=== PATIENT | male | born 1985 | race African-American/Black ===

== ENCOUNTER 2020-11-17 21:34 | Emergency (ER) | payer OTHER, SELFPAY ==
--- NOTE | ~2020-11-17 | CT_ITS ---
EXAMINATION: CT cervical spine wo con DATE: 11/17/2020 23:51 INDICATION: Head injury TECHNIQUE: Computed tomography (CT) of the cervical spine was performed without intravenous contrast. The dose-length product (DLP) was 297.40 mGy-cm. Automated exposure control and iterative reconstruc tion technique were employed. COMPARISON: None FINDINGS: There is no fracture, dislocation, or subluxation. The vertebral body heights, alignment, a nd intervertebral disc spaces are normal. The paravertebral soft tissues are unremarkable. The odonto id is intact. IMPRESSION: 1. No acute osseous abnormality. Reviewed, dictated and finalized at location A.
--- NOTE | ~2020-11-17 | CT_ITS ---
EXAMINATION: CT brain wo con INDICATION: Head injury COMPARISON: None TECHNIQUE: Standard unenhanced head CT. The dose-length product (DLP) was 605.33 mGy-cm. The mA was a djusted according to patient size. Iterative reconstruction technique was employed. FINDINGS: There is no intracranial hemorrhage, acute infarction, or abnormal mass lesion. 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 The ventricles are normal. There is no abnormal mass effect or midline shift. The ross-white matter differentiation is normal. The basal cisterns are patent. Th e orbits are normal. The paranasal sinuses, mastoids and calvarium are normal. IMPRESSION: 1. No acute intracranial abnormality. Reviewed, dictated and finalized at location A.
--- NOTE | 2020-11-17 21:40 | ECG_ITS ---
Measurements Intervals [place] Rate: 104 P: 57 MN: 145 QRS: 28 QRSD: 110 T: 76 QT: 320 QTc: 423 Interpretive Statements SINUS TACHYCARDIA EARLY PRECORDIAL R/S TRANSITION NONSPECIFIC T-WAVE ABNORMALITY BORDERLINE ECG Electronically Signed On 11-18-2020 6:47:11 CDT by Ronald Leon D.O.
[2020-11-17 21:41] VITALS: BP 148/101; PULSE 105; RESP 22; TEMP 36.7; O2SAT 98
[2020-11-17 21:45] VITALS: PULSE 104
[2020-11-17 22:01] LABS: Glucose Point of Care 185 mg/dl (65-105)
[2020-11-17 22:28] VITALS: BP 141/95; PULSE 108; RESP 20; O2SAT 100
--- NOTE | 2020-11-17 22:29 | PC.NURSE ---
Laceration tray at bedside at this time.
--- NOTE | 2020-11-17 22:46 | ED.SYNCOPE ---
HPI - Syncope General Chief Complaint: Syncope Stated Complaint: syncopal with rt eye lac Time Seen by Provider: 11/17/20 22:45 Source: patient, EMS and RN notes reviewed Mode of arrival: EMS History of Present Illness HPI narrative: Patient is 35 years old -[place] male presented to the ED because of syncope and fall. Patient was visiting his brother, sitting on a chair, drinking alcohol and laughing hard then found himself on the floor patient fell of the chair which is about approximately 1 foot above the ground. Patient got up in 15 to 20 seconds. Currently complaining of right frontal pain and laceration. Unknown tetanus shot, fully vaccinated for COVID-19, history of TIA lasted for 2 hours at the beginning of this year, history of diabetes, hypertension, hyperlipidemia. Related Data Allergies Allergy/AdvReac Type Severity Reaction Status Date / Time aspirin Allergy Hives Verified 11/17/20 21:48 Penicillins Allergy Hives Verified 11/17/20 21:48 Course Vital Signs Vital signs: Vital Signs Temperature 36.7 C 11/17/20 21:41 Pulse Rate 105 H 11/17/20 21:41 Respiratory Rate 22 H 11/17/20 21:41 Blood Pressure 148/101 H 11/17/20 21:41 Pulse Oximetry 98 11/17/20 21:41 Temperature 36.7 C 11/17/20 21:41 Pulse Rate 109 H 11/18/20 00:52 Respiratory Rate 13 11/18/20 00:52 Blood Pressure 133/98 H 11/18/20 00:52 Pulse Oximetry 97 11/18/20 00:52 Procedures Laceration Laceration 1: Date: 11/18/20 Time: 02:32 Site: face Side (If applicable): right Size (cm): 2.5 Description: stellate and irregular Depth: simple, single layer Local Anesthetic: lidocaine 1% and with epi Amount of anesthesia used (mL): 1 Pre-repair: wound explored and irrigated ====== Skin Level ====== Skin layer closed with: nylon Size (cm): 6-0 Number of sutures: 7 Technique: simple, interrupted ====== Subcutaneous Layer ====== ====== Muscle Layer ====== ====== Tendon Layer ====== MDM - Syncope MDM Narrative Medical decision making narrative: Patient had vasovagal secondary to hard laughing, work-up showed no significant finding to explain patient's syncope except the hard laughing. Patient was seen by clerk telegraph service today for the second time and the schedule to see him tomorrow for blood work-up. Patient is telling me that he have history of CKD, creatinine averages running in the 2.6. Lab Data Result diagrams: 11/17/20 23:19 11/17/20 23:19 Labs: Lab Results 11/17/20 11/17/20 11/17/20 Range/Units 21:58 23:19 23:19 WBC 7.6 (4.5-10.0) K/mm3 RBC 3.30 L (4.6-6.20) M/mm3 Hgb 10.5 L (14.0-18.0) g/dL Hct 31.5 L (42.0-52.0) % MCV 95.5 (80-100) fl MCH 31.8 (26-34) pg MCHC 33.3 (32-36) g/dl RDW 13.4 (11.5-14.5) % Plt Count 366 (150-375) k/mm3 MPV 8.9 (7.4-10.4) fl Immature Gran % (Auto) 3.6 H (0-0.5) % Neut % (Auto) 63.2 (45.5-73.1) % Lymph % (Auto) 19.1 (18.3-44.2) % [place] % (Auto) 11.1 H (2.6-8.5) % Eos % (Auto) 2.2 (0-4.4) % Baso % (Auto) 0.8 (0.2-1.2) % Lymph # (Auto) 1.45 (0.9-3.2) K/mm3 [place] # (Auto) 0.8 H (0.1-0.6) K/mm3 Eos # (Auto) 0.2 (0-0.3) K/mm3 Baso # (Auto) 0.1 (0.0-0.1) K/mm3 Abs Immat Gran (auto) 0.27 H (0.00-0.031) K/mm3 Absolute Neuts (auto) 4.8 (1.3-6.7) K/mm3 Absolute Nucleated RBC 0.0 (0.0-0.012) K/mm3 Nucleated RBC % 0.0 (0.0-0.2) % Sodium 143 (137-145) mmol/L Potassium 3.9 (3.4-5.0) mmol/L Chloride 108 H (98-107) mmol/L Carbon Dioxide 21 L (22-30) mmol/L Anion Gap 14 (8-16) mmol/L BUN 28 H (9-20) mg/dL Creatinine 2.80 H (0.7-1.3) mg/dL Estim Creat Clear Calc 33 ml/min Estimated GFR 31 L (59 - ) Glucose 207 H (65-110) mg/dL POC Capillary Glucose 185 H (65-105) mg/dl Calcium 10.2 (8.4
[2020-11-17] MEDS: TETANUS,DIPHTHERIA,AC PERTUSSIS ADULT (0.5 ML) BOOSTRIX IM (23:06)
[2020-11-17 23:08] VITALS: BP 152/90; PULSE 104; RESP 18; O2SAT 100
[2020-11-17 23:29] LABS: Basophils Absolute Auto 0.1 K/mm3 (0.0-0.1); Basophils Percent Auto 0.8 % (0.2-1.2); Eosinophils Absolute Auto 0.2 K/mm3 (0-0.3); Eosinophils Percent Auto 2.2 % (0-4.4); Hematocrit 31.5 % (42.0-52.0); Hemoglobin 10.5 g/dL (14.0-18.0); Immature Granulocyte Absolute 0.27 K/mm3 (0.00-0.031); Immature Granulocyte Percent A 3.6 % (0-0.5); Lymphocytes Absolute Auto 1.45 K/mm3 (0.9-3.2); Lymphocytes Percent Auto 19.1 % (18.3-44.2); Mean Corpuscular HGB Conc 33.3 g/dl (32-36); Mean Corpuscular Hemoglobin 31.8 pg (26-34); Mean Corpuscular Volume 95.5 fl (80-100); Mean Platelet Volume 8.9 fl (7.4-10.4); Monocytes Absolute Auto 0.8 K/mm3 (0.1-0.6); Monocytes Percent Auto 11.1 % (2.6-8.5); Neutrophils Absolute Auto 4.8 K/mm3 (1.3-6.7); Neutrophils Percent Auto 63.2 % (45.5-73.1); Platelet Count Result 366 k/mm3 (150-375); Red Cell Distribution Width 13.4 % (11.5-14.5); White Blood Count 7.6 K/mm3 (4.5-10.0)
[2020-11-17 23:38] LABS: Potassium 3.9 mmol/L (3.4-5.0)
[2020-11-17 23:39] LABS: Ethanol 40 mg/dL (<10)
[2020-11-17 23:40] LABS: Alanine Aminotransferase 30 U/L (4-50); Albumin Level 4.7 g/dL (3.5-5.1); Alkaline Phosphatase 39 U/L (38-126); Anion Gap 14 mmol/L (8-16); Aspartate Amino Transferase 37 U/L (17-59); Bilirubin,Total 0.2 mg/dL (0.2-1.3); Blood Urea Nitrogen 28 mg/dL (9-20); Calcium 10.2 mg/dL (8.4-10.2); Carbon Dioxide 21 mmol/L (22-30); Chloride 108 mmol/L (98-107); Estimated CRCL calculation 33 ml/min; Estimated Glomerular Filt Rate 31; Glucose 207 mg/dL (65-110); Sodium 143 mmol/L (137-145)
[2020-11-18] LABS: Amphetamine Screen Urine Negative (Negative); Barbiturate Screen Urine Negative (Negative); Benzodiazepines Screen Urine Negative (Negative); Cannabinoid Screen Urine Positive (Negative); Cocaine Screen Urine Negative (Negative); Methadone Screen Urine Negative (Negative); Opiate Screen Urine Negative (Negative); Phencyclidine Screen Urine Negative (Negative)
[2020-11-18 00:52] VITALS: BP 133/98; PULSE 109; RESP 13; O2SAT 97
[2020-11-18] MEDS: CLINDAMYCIN HCL 150 MG CAP 600 MG PO (02:35)
[2020-11-18 02:36] VITALS: BP 133/88; PULSE 87; RESP 20; O2SAT 99
== END 2020-11-18 02:37 | disposition home or self-care (01) ==
PROVIDERS: Emergency Provider Emergency Medicine; PCP Family Medicine
DX: R55 Syncope and collapse (principal); S01.111A Laceration without foreign body of right eyelid and periocular area, initial encounter; N18.9 Chronic kidney disease, unspecified; E11.22 Type 2 diabetes mellitus with diabetic chronic kidney disease; I12.9 Hypertensive chronic kidney disease with stage 1 through stage 4 chronic kidney disease, or unspecified chronic kidney disease; E78.5 Hyperlipidemia, unspecified; Z86.73 Personal history of transient ischemic attack (TIA), and cerebral infarction without residual deficits; Z79.01 Long term (current) use of anticoagulants; R00.0 Tachycardia, unspecified; R94.31 Abnormal electrocardiogram [ECG] [EKG]; W07.XXXA Fall from chair, initial encounter
CPT/HCPCS: 12011; 36415; 70450; 72125; 80048; 80076; 80307; 82948; 85025; 90471; 90715; 93005; 96372; 99284; A9270